=== PATIENT | male | born 2000 | race Caucasian/White ===

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

== ENCOUNTER 2022-01-17 14:04 | Outpatient (CLI) | payer BC ==
[2022-01-18 00:54] LABS: SARS-CoV-2 PCR by NAA Not Detected (NotDetected)
== END 2022-01-17 14:05 | disposition home or self-care (01) ==
LOC: LABBT 14:04
DX: Z20.822 Contact with and (suspected) exposure to COVID-19 (principal)
CPT/HCPCS: U0003; U0005

== ENCOUNTER 2022-01-22 09:03 | Outpatient (CLI) | payer BC | END 2022-01-22 09:04 | disposition home or self-care (01) | LOC: RAD 09:03 | PROVIDERS: ATTEND Specialist | DX: R13.10 Dysphagia, unspecified (principal) | CPT/HCPCS: 74220 ==

== ENCOUNTER 2024-08-20 10:59 | Outpatient (CLI) | payer BC | END 2024-08-20 11:00 | disposition home or self-care (01) | LOC: SCSRAD 10:59 | PROVIDERS: ATTEND Family Medicine | DX: M79.671 Pain in right foot (principal); M65.271 Calcific tendinitis, right ankle and foot ==